=== PATIENT | female | born 1965 | race Caucasian/White ===

== ENCOUNTER 2023-03-20 12:53 | Inpatient (IN) | payer OTHER ==
[~2023-03-20] VITALS: Ht 157.5 cm; Wt 108.0 kg
[2023-03-20] MEDS ORDERED: ONDANSETRON HCL 4 MG/2 ML VIAL IV ONE (13:15)
[2023-03-20] MEDS ORDERED: SODIUM CHLORIDE 0.9% 500 ML IV ONE (13:15)
[2023-03-20 14:00] LABS: Basophils # (auto) 0.1 10 ^3/uL (0-0.2); Basophils % (auto) 0.5 % (0.0-2.0); Eosinophils # (auto) 0 10 ^3/uL (0-0.8); Hematocrit 48.4 % (36.0-46.0); Lymphocytes # (auto) 0.9 10 ^3/uL (0.4-5.4); Lymphocytes % (auto) 8.4 % (10.0-50.0); Mean Corpuscular Hemoglobin 31.7 pg (28.0-32.0); Mean Corpuscular Hgb Conc. 33.1 g/dL (32.0-36.0); Mean Corpuscular Volume 95.9 fL (80.0-100.0); Monocytes # (auto) 0.2 10 ^3/uL (0-1.3); Neutrophils # (auto) 10.1 10 ^3/uL (1.6-8.6); Neutrophils % (auto) 89.1 % (37.0-80.0); Nucleated Red Blood Cells % 0.1 %; Red Blood Cells 5.04 10^6/uL (4.0-5.20); White Blood Cell 11.3 10^3/uL (4.4-10.8)
[2023-03-20 14:06] LABS: Albumin 4.1 g/dL (3.4-5.0); Calcium 9.3 mg/dL (8.5-10.1); Potassium 4.6 mmol/L (3.5-5.1)
[2023-03-20 14:09] LABS: BUN/Creatinine Ratio 17.7 (10.0-20.0); Bilirubin, Total 1.2 mg/dL (0.2-1.0); Total Protein 8.1 g/dL (6.4-8.2)
[2023-03-20] MEDS ORDERED: MAALOX PLUS or MAALOX 30 ML PO ONE (16:30)
[2023-03-20] MEDS ORDERED: LIDOCAINE VISCOUS 2% 15ML UD PO ONE (16:30)
[2023-03-20] MEDS ORDERED: DONNATAL 5ml ORAL Elix (BELLADONNA ALK-PHENOBARB) PO ONE (16:30)
[2023-03-20 21:06] LABS: Urine Bacteria MANY /hpf (None Seen); Urine Blood 2+ /uL (Negative); Urine Specific Gravity 1.025 (1.001-1.035); Urine WBC 34 /hpf (0 - 5)
[2023-03-20] MEDS ORDERED: cefTRIAXone 1GM/50ML D5W 50 ML IV ONE (22:30)
[2023-03-21] MEDS ORDERED: MORPHINE SULFATE 4 MG/ML SYR/VIAL IV ONE (03:15)
[2023-03-21] MEDS ORDERED: ONDANSETRON HCL 4 MG/2 ML VIAL IV ONE (03:15)
[2023-03-21 03:24] VITALS: PULSE 60; RESP 19; O2SAT 92
[2023-03-21] MEDS ORDERED: ACETAMINOPHEN 325 MG TAB PO PRN (04:30)
[2023-03-21] MEDS ORDERED: ONDANSETRON HCL 4 MG/2 ML VIAL IV PRN (04:30)
[2023-03-21] MEDS ORDERED: HYDROcodone-ACET 5/325MG TAB PO PRN (04:30)
[2023-03-21 06:58] LABS: Potassium 4.2 mmol/L (3.5-5.1)
[2023-03-21 07:06] LABS: Albumin 3.4 g/dL (3.4-5.0); BUN/Creatinine Ratio 24.5 (10.0-20.0); Bilirubin, Total 0.8 mg/dL (0.2-1.0); Calcium 8.3 mg/dL (8.5-10.1); Total Protein 7.2 g/dL (6.4-8.2)
[2023-03-21 07:34] LABS: Basophils # (auto) 0.1 10 ^3/uL (0-0.2); Basophils % (auto) 0.6 % (0.0-2.0); Eosinophils # (auto) 0 10 ^3/uL (0-0.8); Hemoglobin 14.2 g/dL (12.2-16.2); Lymphocytes # (auto) 1.5 10 ^3/uL (0.4-5.4); Lymphocytes % (auto) 11.8 % (10.0-50.0); Mean Corpuscular Hemoglobin 32.1 pg (28.0-32.0); Mean Corpuscular Hgb Conc. 33.7 g/dL (32.0-36.0); Mean Corpuscular Volume 95.3 fL (80.0-100.0); Monocytes # (auto) 0.9 10 ^3/uL (0-1.3); Neutrophils # (auto) 10.5 10 ^3/uL (1.6-8.6); Neutrophils % (auto) 80.6 % (37.0-80.0); Red Blood Cells 4.41 10^6/uL (4.0-5.20); Red Cell Distribution Width 13.3 % (11.8-14.3)
[2023-03-21 09:00] VITALS: PULSE 63; RESP 15; O2SAT 97
[2023-03-21] MEDS ORDERED: PANTOPRAZOLE 40 MG TAB PO SCH (10:00)
[2023-03-21] MEDS ORDERED: SODIUM CHLORIDE 0.9% 1,000 ML IV SCH (11:15)
[2023-03-21] MEDS: SUCRALFATE 1 GM/10 ML ORAL SUSP PO SCH ×2 (13:22→17:05)
[2023-03-21 19:54] VITALS: BP 117/54; PULSE 57; RESP 18; TEMP 99; O2SAT 98
[2023-03-22] MEDS ORDERED: cefTRIAXone 1GM/50ML D5W 50 ML IV SCH (02:00)
== END 2023-03-21 20:03 | disposition short-term general hospital (02) | DRG 872 ==
LOC: ER 12:53 → OVERFLOW 20:04
PROVIDERS: ADMIT Nurse Practitioner Acute Care; ATTEND Nurse Practitioner Acute Care
DX: A41.9 Sepsis, unspecified organism (principal); N17.9 Acute kidney failure, unspecified; Z68.41 Body mass index [BMI] 40.0-44.9, adult; K52.9 Noninfective gastroenteritis and colitis, unspecified; E66.01 Morbid (severe) obesity due to excess calories; N30.90 Cystitis, unspecified without hematuria; R00.1 Bradycardia, unspecified; Z20.822 Contact with and (suspected) exposure to COVID-19
CPT/HCPCS: 36415; 74176; 76705; 80053; 81001; 83690; 84484; 85025; 87086; 87426; 93005; 96361; 96365; 96375; 96376; 99291; G0378; J0696; J2405